=== PATIENT | male | born 1970 | race Caucasian/White ===

== ENCOUNTER 2016-11-30 09:25 | Emergency (ER) | payer BC ==
--- NOTE | 2016-11-30 10:18 | ED ---
General Adult HPI - General Chief complaint: Chest Pain Stated complaint: Fall Time Seen by Provider: 11/30/16 09:50 Source: patient, RN notes reviewed Mode of arrival: ambulatory Limitations: no limitations - History of Present Illness Initial comments: Patient is a 46-year-old male presents to the emergency room for evaluation of right-sided rib pain. Patient states he was mountain climbing in [place] on Sunday and accidentally slipped on the ground while holding a branch and fell on a rock. Patient states he landed on the side of his right ribs. Patient states pain is worse since it began. Patient states he is still able to breathe and denies shortness of breath. Patient states pain is worse whenever he coughs or makes a bowel movement. Patient states he does not have as much pain while taking a deep breath. Patient denies any other injuries during incident. Patient states he is taking Tylenol with Codeine with slight relief of symptoms. Patient states he's having 8 out of 10 pain. Patient states pain improves when he puts pressure over the area. Patient denies significant past medical history. Patient denies smoking. Patient denies head trauma during the incident. - Related Data Home Medications Medication Instructions Recorded Confirmed Aspirin EC [Ecotrin Low Dose] 81 mg PO DAILY 11/30/16 11/30/16 Atorvastatin [Lipitor] 40 mg PO HS 11/30/16 11/30/16 Empagliflozin [Jardiance] 25 mg PO DAILY 11/30/16 11/30/16 Multivitamin [Men's Multi-Vitamin] 1 tab PO DAILY 11/30/16 11/30/16 Berger-3 Fatty Acids/Fish Oil [Fish 1 cap PO DAILY 11/30/16 11/30/16 Oil 1,000 mg Softgel] Tylenol Codiene Caffeine 1 tab PO 5XD PRN 11/30/16 11/30/16 metFORMIN HCL 1,000 mg PO BID 11/30/16 11/30/16 Previous Rx's Medication Instructions Recorded Albuterol Inhaler [Ventolin Hfa 1 - 2 puff INHALATION Q6HR PRN #1 11/30/16 Inhaler] inhaler HYDROcodone/APAP 5-325MG [[place] 1 tab PO Q6HR PRN #15 tab 11/30/16 5-325] Ibuprofen [Motrin] 800 mg PO Q6HR PRN #20 tab 11/30/16 Allergies Allergy/AdvReac Type Severity Reaction Status Date / Time No Known Allergies Allergy Verified 11/30/16 10:38 Review of Systems ROS Statement: Those systems with pertinent positive or pertinent negative responses have been documented in the HPI. ROS Other: All systems not noted in ROS Statement are negative. Past Medical History Past Medical History: Diabetes Mellitus, Hypertension History of Any Multi-Drug Resistant Organisms: None Reported Past Surgical History: No Surgical Hx Reported Past Psychological History: No Psychological Hx Reported Smoking Status: Former smoker Past Alcohol Use History: None Reported Past Drug Use History: None Reported General Exam - General Exam Comments Initial Comments: Sitting in exam room, no acute distress. Limitations: no limitations General appearance: alert, in no apparent distress Head exam: Present: atraumatic, normocephalic, normal inspection Eye exam: Present: normal appearance ENT exam: Present: normal exam Neck exam: Present: normal inspection Respiratory exam: Present: normal lung sounds bilaterally, chest wall tenderness (Tenderness on palpating over lateral right ribs with mild ecchymosis.). Absent: respiratory distress Cardiovascular Exam: Present: regular rate, normal rhythm, normal heart sounds GI/Abdominal exam: Present: soft, normal bowel sounds. Absent: distended, tenderness, guarding, rebound, rigid Extremities exam: Present: normal inspection Back exam: Present: normal inspection Neurological exam: Present: alert, oriented X3, CN II-XII intact, normal gait Psychiatric exam: Present: normal affect, normal mood Skin exam: Present: warm, dry, intact, normal color. Absent: rash Course Vital Signs 11/30/16 11/30/16 09:40 11:34 Temperature 97.4 F L 98.5 F Pulse Rate 58 L 61 Respiratory 16 18 Rate Blood Pressure 128/82 128/85 O2 Sat by Pulse 98 97 Oximetry Medical Decision Making - Medical Decision Making Patient is a 46-year-old male presents emergency room for evaluation of right- sided anterior rib pain. Patient declined pain medications while he was here. X-ray significant for mildly displaced fracture of sixth rib. Will place patient on pain medications, inhaler and incentive spirometer. Advised patient to follow-up with his primary care provider for reevaluation. Patient states he understands everything that was discussed with him. Return parameters discussed. Case discussed with Dr. Reid. - Radiology Data Radiology results: report reviewed, image reviewed Disposition Clinical Impression: Rib fracture Disposition: HOME SELF-CARE Condition: Good Instructions: Rib Fracture (ED) Additional Instructions: Use spirometer once every hour. Use inhaler as needed. Take ibuprofen as needed for pain. Take [place] as needed for severe pain. Please follow up with primary care provider on Sunday for reevaluation. If any new symptom arises or symptoms worsen, return to ER as soon as possible. Prescriptions: Albuterol Inhaler [Ventolin Hfa Inhaler] 1 - 2 puff INHALATION Q6HR PRN #1 inhaler PRN Reason: Cough HYDROcodone/APAP 5-325MG [[place] 5-325] 1 tab PO Q6HR PRN #15 tab PRN Reason: Pain Ibuprofen [Motrin] 800 mg PO Q6HR PRN #20 tab PRN Reason: Pain Referrals: Aida Lin DO [Primary Care Provider] - 1-2 days Time of Disposition: 10:57
--- NOTE | 2016-11-30 10:31 | XR ---
EXAMINATION TYPE: XR ribs RT w pa chest xray DATE OF EXAM: 11/30/2016 10:25 AM CLINICAL HISTORY: Chest and right-sided rib pain after fall injury. TECHNIQUE: Single frontal view of the chest is obtained. A frontal and oblique images of the right-si ded ribs are acquired. COMPARISON: None FINDINGS: There is no focal air space opacity, pleural effusion, or pneumothorax seen. The cardiac silhouette size is within normal limits. The osseous structures are intact. Dedicated rib images show minimally displaced acute fracture involving the right anterolateral ninth rib. Adjacent ribs are intact. Overlying soft tissue is unremarkable. IMPRESSION: 1. No acute cardiopulmonary process. 2. Minimally displaced acute anterolateral right ninth rib fracture.
[2016-11-30 11:35] VITALS: BP 128/85; PULSE 61; RESP 18; TEMP 98.5
== END 2016-11-30 11:36 | disposition home or self-care (01) ==
LOC: EC 09:25
DX: S22.31XA Fracture of one rib, right side, initial encounter for closed fracture (principal); E11.9 Type 2 diabetes mellitus without complications; I10 Essential (primary) hypertension; Z87.891 Personal history of nicotine dependence; Z79.82 Long term (current) use of aspirin; Z79.899 Other long term (current) drug therapy; Z79.84 Long term (current) use of oral hypoglycemic drugs; W01.0XXA Fall on same level from slipping, tripping and stumbling without subsequent striking against object, initial encounter; Y93.31 Activity, mountain climbing, rock climbing and wall climbing; Y92.828 Other wilderness area as the place of occurrence of the external cause
CPT/HCPCS: 99283; 99285

== ENCOUNTER → 2021-07-21 | Outpatient (CLI) | payer BC ==
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
== END | disposition home or self-care (01) ==
LOC: RADMRIMAIN 16:44
PROVIDERS: ATTEND Family Medicine
DX: M50.223 Other cervical disc displacement at C6-C7 level (principal)
CPT/HCPCS: 72141

== ENCOUNTER → 2024-01-09 | Outpatient (CLI) | payer BC ==
--- NOTE | 2024-01-09 11:48 | NM ---
EXAMINATION TYPE: NM stress cardiolite complete DATE OF EXAM: 01/09/2024 COMPARISON: NONE CLINICAL INDICATION: Male, 53 years old with history of R00.2 CHEST PAIN R94.31 ABNORMAL MONITOR; TECHNIQUE: After the intravenous administration of 9.8 mCi Tc 99m Sestamibi - Rest images obtained 6 0 minutes post injection. The patient exercised using a KATERINA protocol and 1 minute prior to peak e xercise was injected with 25.1 mCi Tc 99m Sestamibi - Stress images obtained 10 minutes post injectio n. FINDINGS: Targeted heart rate was achieved during performance of the study. Review of stress and rest SPECT jorden ges demonstrates no distinct perfusion abnormality. Gated analysis shows normal wall motion with an estimated left ventricular ejection fraction of 58% %. IMPRESSION: No scintigraphic evidence for reversible ischemia
--- NOTE | 2024-01-11 10:58 | CA ---
Exercise Nuclear Stress Test Report Name: Kyara Aguilera Exam Date: 01/09/2024 09:23 Exam Location: [place] Stress Ht (in): 72 Wt (lb): 182 BSA: 2.05 Ordering Phys: Aida Lin DO Referring Phys: Ramya Milan PAC Technologist: FAWN Age: 53 Gender: M : 1970 Procedure CPT: Indications: R00.2 CHEST PAIN R94.31 ABNORMAL MONITOR ICD-10 Codes: Patient History: Palpitations Medications: Meds past 24 hrs: Pretest Chest Pain: STRESS TEST Chad Protocol Exercise Duration (min:sec): 10:[address] Depressions (mm): Angina Score: Desai Score: Resting HR (bpm): 61 Peak HR (bpm): 166 Resting BP (mmHg): 129 / 87 Peak BP (mmHg): 214 / 75 MPHR: 168 Target HR: 143 % MPHR: 99 METS: 12.1 Total Dose: Peak Dose: Atropine: Double Product: 99928 BP Response: Stress Termination: Reached target heart rate Stress Symptoms: No chest pain or symptoms Stress Summary: ECG ANALYSIS Resting ECG: Stress ECG: CONCLUSIONS Normal twelve-lead EKG at baseline Patient excised a Chad protocol for 10 a half minutes, 12 METs of workload achieved Peak heart rate 166 beats a minute. Hypertensive response to exercise Peak blood pressure 214/75 mmHg No ECG evidence for ischemia Occasional PVCs Nuclear portion will be reported separately Dr. Michael Do MD (Electronically Signed) Final Date: 11 January 2024 10:57
== END | disposition home or self-care (01) ==
LOC: RADNMMAIN 07:47
PROVIDERS: ATTEND Family Medicine
DX: I49.3 Ventricular premature depolarization (principal); I10 Essential (primary) hypertension; R94.31 Abnormal electrocardiogram [ECG] [EKG]; R00.2 Palpitations
CPT/HCPCS: 93017; 78452; A9500